=== PATIENT | male | born 1940 | race African-American/Black ===

== ENCOUNTER 2017-03-04 09:44 | Emergency (ER) | payer OTHER, MEDICAID ==
[~2017-03-04] VITALS: Ht 175.3 cm; Wt 80.0 kg
[~2017-03-04 09:44] MED LIST: ATEN1TAB42 PO; GLIP10TA10 PO; INSU100C3 SQ; INSU3INS6 SUBCUT; LOV80 SUBCUT; WARF5TAB76 PO
[2017-03-04 10:17] LABS: HEMATOCRIT. 32.2 % (42.0-52.0); HEMOGLOBIN. 10.4 g/dL (14.0-18.0); MEAN CORPUSCULAR HEMOGLOBIN 26.5 pg (28.0-32.0); MEAN CORPUSCULAR HGB CONC 32.3 g/dL (31.0-37.0); MEAN CORPUSCULAR VOLUME 81.9 fL (80.0-94.0); MEAN PLATELET VOLUME 9.1 fl (7.4-10.4); PLATELET 186 x1000/uL (130-400); RED BLOOD CELL COUNT 3.93 mill/uL (4.7-6.1); RED CELL DISTRIBUTION WIDTH 14.8 % (11.6-14.6); WHITE BLOOD COUNT 6.7 x1000/uL (4.5-11.0)
[2017-03-04 10:18] LABS: DIFFERENTIAL COMMENT 1
[2017-03-04 10:22] LABS: CHLORIDE 113 mEq/L (98-107)
[2017-03-04 10:25] LABS: ANION GAP 11; CARBON DIOXIDE 28 mEq/L (21-32); INDEX HEMOLYSI 1 (1-3); INDEX ICTERIC 1 (1-4); INDEX LIPEMIC 1 (1-3); UREA NITROGEN BLOOD 39 mg/dL (7-21)
[2017-03-04 10:30] LABS: ALANINE AMINOTRANSFERASE 17 IU/L (13-61); INR 2.9; PROTHROMBIN TIME 30.4 sec; eGFR 19 mL/min (>60)
[2017-03-04 10:49] LABS: PLATELET ESTIMATE NORMAL
[2017-03-04] MEDS ORDERED: ACETAMINOPHEN 325MG TABLET PO ONE (11:15)
[2017-03-04 12:00] VITALS: BP 142/80
== END 2017-03-04 12:00 | disposition home or self-care (01) ==
LOC: ER 10:01
DX: S16.1XXA Strain of muscle, fascia and tendon at neck level, initial encounter (principal); S20.219A Contusion of unspecified front wall of thorax, initial encounter; S09.8XXA Other specified injuries of head, initial encounter; E11.9 Type 2 diabetes mellitus without complications; E78.00 Pure hypercholesterolemia, unspecified; I51.9 Heart disease, unspecified; I25.10 Atherosclerotic heart disease of native coronary artery without angina pectoris; Z79.4 Long term (current) use of insulin; Z79.01 Long term (current) use of anticoagulants; Z88.5 Allergy status to narcotic agent; Z96.659 Presence of unspecified artificial knee joint; V43.92XA Unspecified car occupant injured in collision with other type car in traffic accident, initial encounter; Y93.89 Activity, other specified; Y99.8 Other external cause status; Y92.89 Other specified places as the place of occurrence of the external cause
CPT/HCPCS: 36415; 70450; 71010; 72125; 80053; 85025; 85610; 93005; 99285

== ENCOUNTER 2017-04-02 18:38 | Inpatient (IN) | payer OTHER, MEDICAID ==
[~2017-04-02] VITALS: Ht 175.3 cm; Wt 79.4 kg
[2017-04-02] MEDS ORDERED: IPRATROPIUM BROMIDE (0.02%) 0.5MG/2.5ML NEB HHN STA (19:05)
[2017-04-02] MEDS ORDERED: METHYLPREDNISOLONE SOD SUCC 125 MG/2 ML VIAL IV STA (19:05)
[2017-04-02] MEDS ORDERED: ALBUTEROL (0.083%) 2.5MG/3ML NEB HHN STA (19:05)
[2017-04-02] MEDS ORDERED: NITROGLYCERIN OINT 1GM/INCH UDPKT TD STA (19:05)
[2017-04-02 19:29] LABS: BASOPHILS % 1.2 % (0.0-2.0); EOSINOPHILS % 14.2 % (0.0-5.0); HEMATOCRIT. 33.9 % (42.0-52.0); HEMOGLOBIN. 10.9 g/dL (14.0-18.0); LYMPHOCYTES % 29.1 % (20.0-50.0); MEAN CORPUSCULAR HEMOGLOBIN 26.5 pg (28.0-32.0); MEAN CORPUSCULAR VOLUME 82.5 fL (80.0-94.0); MEAN PLATELET VOLUME 9.2 fl (7.4-10.4); MONOCYTES % 7.3 % (2.0-8.0); NEUTROPHILS % 48.2 % (40.0-76.0); PLATELET 185 x1000/uL (130-400); RED BLOOD CELL COUNT 4.11 mill/uL (4.7-6.1); RED CELL DISTRIBUTION WIDTH 14.3 % (11.6-14.6)
[2017-04-02 19:34] LABS: INR 1.7; PROTHROMBIN TIME 17.4 sec
[2017-04-02 19:39] LABS: CARBON DIOXIDE 27 mEq/L (21-32); CHLORIDE 108 mEq/L (98-107)
[2017-04-02 19:43] LABS: TROPONIN I < 0.02 ng/mL (0.00-0.04)
[2017-04-02] MEDS ORDERED: SODIUM POLYSTYRENE SULFONATE 15 G/60 ML BOT PO ONE (20:00)
[2017-04-02] MEDS ORDERED: INSULIN REGULAR (HUMULIN R) UD 100 UNITS/ML SYR IV ONE (20:00)
[2017-04-02] MEDS ORDERED: DEXTROSE 50% WATER 50ML SYRINGE IV ONE (20:00)
[2017-04-02] MEDS ORDERED: INSULIN REGULAR (HUMULIN R) 300UNITS/3ML IV ONE (20:00)
[2017-04-02] MEDS ORDERED: SODIUM BICARBONATE 8.4% 1 MEQ/ML 50ML SYR IV ONE (20:00)
[2017-04-02] MEDS ORDERED: INSULIN REGULAR (HUMULIN R) 300UNITS/3ML IV NR (20:15)
[2017-04-02 23:20] VITALS: BP 146/82
[2017-04-03] MEDS ORDERED: HYDROCODONE/ACETAMINOPHEN 5/325MG TABLET PO PRN (00:45)
[2017-04-03] MEDS ORDERED: TEMAZEPAM 15MG CAPSULE PO PRN (00:45)
[2017-04-03] MEDS ORDERED: DEXTROSE 50% WATER 50ML SYRINGE IV PRN (00:45)
[2017-04-03] MEDS: SODIUM CHLORIDE 0.45% 1,000 ML IV SCH ×2 (02:39→17:13)
[2017-04-03 04:00] VITALS: BP 134/82
[2017-04-03] MEDS: CEFTRIAXONE 1 G PREMIX 50 ML IV SCH (04:50)
[2017-04-03] MEDS: IPRATROPIUM/ALBUTEROL 0.5-3(2.5)MG/3ML NEB HHN SCH ×5 (05:04→20:41)
[2017-04-03 06:26] LABS: BASOPHILS % 0.3 % (0.0-2.0); EOSINOPHILS % 0.1 % (0.0-5.0); HEMATOCRIT. 32.7 % (42.0-52.0); HEMOGLOBIN. 10.4 g/dL (14.0-18.0); INR 1.9; LYMPHOCYTES % 11.3 % (20.0-50.0); MEAN CORPUSCULAR HEMOGLOBIN 26.7 pg (28.0-32.0); MEAN PLATELET VOLUME 9.7 fl (7.4-10.4); MONOCYTES % 0.4 % (2.0-8.0); NEUTROPHILS % 87.9 % (40.0-76.0); PLATELET 139 x1000/uL (130-400); PROTHROMBIN TIME 20.3 sec; RED BLOOD CELL COUNT 3.89 mill/uL (4.7-6.1); RED CELL DISTRIBUTION WIDTH 14.2 % (11.6-14.6)
[2017-04-03] MEDS: BLOOD SUGAR DIAGNOSTIC STRIP TEST SCH ×4 (07:03→22:26)
[2017-04-03] MEDS ORDERED: GLIPIZIDE 10MG TABLET PO SCH ×2 (07:30→09:00)
[2017-04-03 08:00] VITALS: BP 129/61
[2017-04-03] MEDS: GLIPIZIDE 10MG TABLET PO SCH ×2 (08:39→18:08)
[2017-04-03] MEDS: INSULIN LISPRO 100 UNITS/ML SUBCUT SCH ×5 (08:47→22:34)
[2017-04-03] MEDS ORDERED: [UNRECOGNIZED DRUG - OTHER] SUBCUT SCH (09:00)
[2017-04-03] MEDS ORDERED: INSULIN GLARGINE HUM REC ANLOG 26 UNIT SUBCUT SCH (09:00)
[2017-04-03] MEDS: METHYLPREDNISOLONE SOD SUCC 40 MG/ML VIAL IV SCH ×2 (09:13→21:26)
[2017-04-03] MEDS ORDERED: SODIUM POLYSTYRENE SULFONATE 15 G/60 ML BOT PO SCH (09:30)
[2017-04-03] MEDS: INSULIN DETEMIR UD 100 UNITS/ML SYR SUBCUT SCH ×2 (10:12→22:30)
[2017-04-03 12:00] VITALS: BP 143/83
[2017-04-03] MEDS ORDERED: FUROSEMIDE 20MG/2ML VIAL IVP NR (16:45)
[2017-04-03] MEDS ORDERED: WARFARIN SODIUM 5MG TABLET PO NR (18:00)
[2017-04-03 20:00] VITALS: BP 138/71
[2017-04-04] VITALS: BP 118/60
[2017-04-04] MEDS: CEFTRIAXONE 1 G PREMIX 50 ML IV SCH (03:55)
[2017-04-04 04:00] VITALS: BP 142/73
[2017-04-04] MEDS: IPRATROPIUM/ALBUTEROL 0.5-3(2.5)MG/3ML NEB HHN SCH ×6 (04:00→20:15)
[2017-04-04 06:37] LABS: INR 2.1
[2017-04-04] MEDS: SODIUM CHLORIDE 0.45% 1,000 ML IV SCH ×2 (06:46→16:12)
[2017-04-04] MEDS: BLOOD SUGAR DIAGNOSTIC STRIP TEST SCH ×4 (06:47→21:19)
[2017-04-04 06:59] LABS: PHOSPHORUS 3.9 mg/dL (2.5-4.9)
[2017-04-04 07:40] LABS: BASOPHILS % 0.1 % (0.0-2.0); HEMATOCRIT. 26.9 % (42.0-52.0); HEMOGLOBIN. 8.7 g/dL (14.0-18.0); LYMPHOCYTES % 8.6 % (20.0-50.0); MEAN CORPUSCULAR HEMOGLOBIN 26.3 pg (28.0-32.0); MEAN CORPUSCULAR VOLUME 81.6 fL (80.0-94.0); MEAN PLATELET VOLUME 9.6 fl (7.4-10.4); MONOCYTES % 1.4 % (2.0-8.0); NEUTROPHILS % 89.9 % (40.0-76.0); PLATELET 161 x1000/uL (130-400); RED CELL DISTRIBUTION WIDTH 14.1 % (11.6-14.6)
[2017-04-04 08:00] VITALS: BP 121/62
[2017-04-04] MEDS: METHYLPREDNISOLONE SOD SUCC 40 MG/ML VIAL IV SCH ×2 (08:33→21:19)
[2017-04-04] MEDS: GLIPIZIDE 10MG TABLET PO SCH ×2 (08:34→17:45)
[2017-04-04] MEDS: INSULIN LISPRO 100 UNITS/ML SUBCUT SCH ×4 (08:37→21:23)
[2017-04-04 12:00] VITALS: BP 137/58
[2017-04-04] MEDS: INSULIN DETEMIR UD 100 UNITS/ML SYR SUBCUT SCH ×2 (12:35→21:24)
[2017-04-04 16:00] VITALS: BP 165/92
[2017-04-04] MEDS: LOSARTAN POTASSIUM 50 MG TABLET PO SCH ×3 (16:10→16:14)
[2017-04-04] MEDS ORDERED: WARFARIN SODIUM 5MG TABLET PO SCH (18:00)
[2017-04-04 20:00] VITALS: BP 138/108
[2017-04-04] MEDS: ATENOLOL 50 MG TABLET PO SCH (20:11)
[2017-04-05] VITALS: BP 124/84
[2017-04-05] MEDS ORDERED: FUROSEMIDE 40MG/4ML VIAL IVP NR (01:45)
[2017-04-05] MEDS: SODIUM CHLORIDE 0.45% 1,000 ML IV SCH ×2 (03:54→16:45)
[2017-04-05] MEDS: CEFTRIAXONE 1 G PREMIX 50 ML IV SCH (03:54)
[2017-04-05 04:00] VITALS: BP 159/80
[2017-04-05] MEDS: IPRATROPIUM/ALBUTEROL 0.5-3(2.5)MG/3ML NEB HHN SCH ×6 (04:00→21:07)
[2017-04-05] MEDS: HYDRALAZINE HCL 50MG TABLET PO SCH ×3 (06:15→21:59)
[2017-04-05 06:36] LABS: BASOPHILS % 0.1 % (0.0-2.0); HEMATOCRIT. 28.3 % (42.0-52.0); HEMOGLOBIN. 9.1 g/dL (14.0-18.0); MEAN CORPUSCULAR HEMOGLOBIN 26.1 pg (28.0-32.0); MEAN CORPUSCULAR VOLUME 81.1 fL (80.0-94.0); MEAN PLATELET VOLUME 9.4 fl (7.4-10.4); MONOCYTES % 2.2 % (2.0-8.0); NEUTROPHILS % 89.7 % (40.0-76.0); PLATELET 169 x1000/uL (130-400); RED BLOOD CELL COUNT 3.49 mill/uL (4.7-6.1); RED CELL DISTRIBUTION WIDTH 13.9 % (11.6-14.6)
[2017-04-05 06:45] LABS: INR 2.1; PROTHROMBIN TIME 22.2 sec
[2017-04-05 07:24] LABS: CARBON DIOXIDE 25 mEq/L (21-32); CHLORIDE 110 mEq/L (98-107)
[2017-04-05] MEDS: BLOOD SUGAR DIAGNOSTIC STRIP TEST SCH ×4 (07:40→21:57)
[2017-04-05 08:00] VITALS: BP 161/95
[2017-04-05] MEDS: INSULIN LISPRO 100 UNITS/ML SUBCUT SCH ×4 (08:10→22:01)
[2017-04-05] MEDS: METHYLPREDNISOLONE SOD SUCC 40 MG/ML VIAL IV SCH ×2 (09:00→21:00)
[2017-04-05] MEDS: INSULIN DETEMIR UD 100 UNITS/ML SYR SUBCUT SCH ×2 (11:40→22:01)
[2017-04-05] MEDS: GLIPIZIDE 10MG TABLET PO SCH ×2 (11:42→18:17)
[2017-04-05] MEDS: TAMSULOSIN HCL 0.4MG SR CAPSULE PO SCH (11:42)
[2017-04-05] MEDS: ATENOLOL 50 MG TABLET PO SCH (11:43)
[2017-04-05 12:00] VITALS: BP 184/92
[2017-04-05 16:00] VITALS: BP 167/92
[2017-04-05] MEDS ORDERED: WARFARIN SODIUM 5MG TABLET PO SCH (18:00)
[2017-04-05 20:00] VITALS: BP 147/76
[2017-04-06] VITALS: BP 125/64
[2017-04-06] MEDS: IPRATROPIUM/ALBUTEROL 0.5-3(2.5)MG/3ML NEB HHN SCH ×5 (01:15→21:13)
[2017-04-06 04:00] VITALS: BP 128/59
[2017-04-06] MEDS: CEFTRIAXONE 1 G PREMIX 50 ML IV SCH ×2 (04:00→21:53)
[2017-04-06] MEDS: SODIUM CHLORIDE 0.45% 1,000 ML IV SCH ×2 (05:15→17:45)
[2017-04-06 05:34] LABS: INR 2.1; PROTHROMBIN TIME 21.4 sec
[2017-04-06 05:57] LABS: BASOPHILS % 0.2 % (0.0-2.0); EOSINOPHILS % 1.3 % (0.0-5.0); HEMATOCRIT. 28.7 % (42.0-52.0); HEMOGLOBIN. 9.3 g/dL (14.0-18.0); LYMPHOCYTES % 18.6 % (20.0-50.0); MEAN CORPUSCULAR HEMOGLOBIN 26.4 pg (28.0-32.0); MEAN CORPUSCULAR VOLUME 81.4 fL (80.0-94.0); MEAN PLATELET VOLUME 9.4 fl (7.4-10.4); MONOCYTES % 9.2 % (2.0-8.0); NEUTROPHILS % 70.7 % (40.0-76.0); PLATELET 164 x1000/uL (130-400); RED BLOOD CELL COUNT 3.53 mill/uL (4.7-6.1); RED CELL DISTRIBUTION WIDTH 13.9 % (11.6-14.6)
[2017-04-06] MEDS: HYDRALAZINE HCL 50MG TABLET PO SCH ×3 (06:03→21:46)
[2017-04-06] MEDS: BLOOD SUGAR DIAGNOSTIC STRIP TEST SCH ×4 (06:52→21:23)
[2017-04-06] MEDS: INSULIN LISPRO 100 UNITS/ML SUBCUT SCH ×4 (07:24→21:00)
[2017-04-06 08:00] VITALS: BP 141/69
[2017-04-06] MEDS: METHYLPREDNISOLONE SOD SUCC 40 MG/ML VIAL IV SCH ×2 (09:00→21:00)
[2017-04-06] MEDS: TAMSULOSIN HCL 0.4MG SR CAPSULE PO SCH (09:51)
[2017-04-06] MEDS: GLIPIZIDE 10MG TABLET PO SCH ×2 (09:52→17:14)
[2017-04-06] MEDS: ATENOLOL 50 MG TABLET PO SCH (09:52)
[2017-04-06] MEDS: INSULIN DETEMIR UD 100 UNITS/ML SYR SUBCUT SCH ×2 (09:54→21:24)
[2017-04-06 12:00] VITALS: BP 138/83
[2017-04-06 13:07] LABS: *CREATININE RANDOM URINE 104.1 mg/dL (Not Estab.)
[2017-04-06 16:00] VITALS: BP 131/71
[2017-04-06] MEDS ORDERED: ACETAMINOPHEN 650MG/20.3ML UDC PO PRN (17:45)
[2017-04-06] MEDS ORDERED: WARFARIN SODIUM 5MG TABLET PO SCH (18:00)
[2017-04-06 20:00] VITALS: BP 118/83
[2017-04-07] VITALS: BP 121/66
[2017-04-07] MEDS: SODIUM CHLORIDE 0.45% 1,000 ML IV SCH (00:30)
[2017-04-07 04:00] VITALS: BP 132/61
[2017-04-07] MEDS: IPRATROPIUM/ALBUTEROL 0.5-3(2.5)MG/3ML NEB HHN SCH ×3 (04:30→12:33)
[2017-04-07] MEDS: HYDRALAZINE HCL 50MG TABLET PO SCH (05:20)
[2017-04-07] MEDS: BLOOD SUGAR DIAGNOSTIC STRIP TEST SCH ×2 (05:20→12:09)
[2017-04-07 08:00] VITALS: BP 136/79
[2017-04-07] MEDS: INSULIN LISPRO 100 UNITS/ML SUBCUT SCH ×2 (08:10→12:09)
[2017-04-07] MEDS: GLIPIZIDE 10MG TABLET PO SCH (08:41)
[2017-04-07] MEDS: METHYLPREDNISOLONE SOD SUCC 40 MG/ML VIAL IV SCH (09:00)
[2017-04-07] MEDS: ATENOLOL 50 MG TABLET PO SCH (09:39)
[2017-04-07] MEDS: TAMSULOSIN HCL 0.4MG SR CAPSULE PO SCH (09:39)
[2017-04-07] MEDS: INSULIN DETEMIR UD 100 UNITS/ML SYR SUBCUT SCH (09:41)
[2017-04-07 12:00] VITALS: BP 138/86
[2017-04-07 13:28] VITALS: BP 138/86
[2017-04-07] MEDS ORDERED: WARFARIN SODIUM 3MG TABLET PO SCH (18:00)
[2017-04-07] MEDS ORDERED: ATORVASTATIN CALCIUM 20MG TABLET PO SCH (21:00)
[2017-04-08 13:10] LABS: MICROALBUMIN RANDOM URINE 738.2 ug/mL (Not Estab.); MICROALBUMIN/CREATININE RATIO 709.1 mg/g creat (0.0-30.0)
== END 2017-04-07 14:30 | disposition home or self-care (01) | DRG 682 ==
LOC: ER 20:40 → 7WST 20:42 → EDBEDREQ 20:44 → EDBEDREQTM 20:44 → ENRESERV 21:46
PROVIDERS: ADMIT Internal Medicine; ATTEND Internal Medicine
DX: N17.9 Acute kidney failure, unspecified (principal); E43 Unspecified severe protein-calorie malnutrition; I13.0 Hypertensive heart and chronic kidney disease with heart failure and stage 1 through stage 4 chronic kidney disease, or unspecified chronic kidney disease; J44.1 Chronic obstructive pulmonary disease with (acute) exacerbation; I43 Cardiomyopathy in diseases classified elsewhere; N18.4 Chronic kidney disease, stage 4 (severe); I50.9 Heart failure, unspecified; E11.65 Type 2 diabetes mellitus with hyperglycemia; E11.22 Type 2 diabetes mellitus with diabetic chronic kidney disease; D63.1 Anemia in chronic kidney disease; E87.5 Hyperkalemia; E11.649 Type 2 diabetes mellitus with hypoglycemia without coma; J06.9 Acute upper respiratory infection, unspecified; J01.90 Acute sinusitis, unspecified; I87.8 Other specified disorders of veins; E66.9 Obesity, unspecified; E78.5 Hyperlipidemia, unspecified; M19.90 Unspecified osteoarthritis, unspecified site; Z98.41 Cataract extraction status, right eye; Z98.42 Cataract extraction status, left eye; Z68.25 Body mass index [BMI] 25.0-25.9, adult; Z79.01 Long term (current) use of anticoagulants; Z79.4 Long term (current) use of insulin; Z79.899 Other long term (current) drug therapy; Z86.718 Personal history of other venous thrombosis and embolism; Z87.891 Personal history of nicotine dependence; Z83.3 Family history of diabetes mellitus
CPT/HCPCS: 36415; 71010; 76700; 80048; 80053; 82043; 82570; 82962; 83036; 83605; 83690; 83880; 83970; 84100; 84132; 84300; 84439; 84443; 84484; 85025; 85610; 87040; 93005; 94640; 94644; 94664; 96374; 96375; 99285; A6261; J0696; J1815; J1940; J2920; J2930; J3490; J7611; J7620

== ENCOUNTER 2017-07-28 11:45 | Inpatient (IN) | payer OTHER, MEDICAID ==
[~2017-07-28] VITALS: Ht 172.7 cm; Wt 90.7 kg
[2017-07-28 12:45] LABS: EOSINOPHILS % 2.2 % (0.0-5.0); HEMATOCRIT. 34.5 % (42.0-52.0); HEMOGLOBIN. 11.1 g/dL (14.0-18.0); LYMPHOCYTES % 15.8 % (20.0-50.0); MEAN CORPUSCULAR HEMOGLOBIN 26.1 pg (28.0-32.0); MEAN CORPUSCULAR VOLUME 81.5 fL (80.0-94.0); MEAN PLATELET VOLUME 9.6 fl (7.4-10.4); MONOCYTES % 4.6 % (2.0-8.0); NEUTROPHILS % 76.4 % (40.0-76.0); PLATELET 149 x1000/uL (130-400); RED BLOOD CELL COUNT 4.23 mill/uL (4.7-6.1); RED CELL DISTRIBUTION WIDTH 13.8 % (11.6-14.6)
[2017-07-28 12:53] LABS: CHLORIDE 114 mEq/L (98-107); INR 1.5; PARTIAL THROMBOPLASTIN TIME 31.7 sec (23.4-31.0); PROTHROMBIN TIME 15.4 sec (9.4-11.6)
[2017-07-28 13:02] LABS: CARBON DIOXIDE 24 mEq/L (21-32); TROPONIN I 0.02 ng/mL (0.00-0.04)
[2017-07-28 20:00] VITALS: BP 129/82
[2017-07-28 21:58] VITALS: BP 122/66
[2017-07-28] MEDS ORDERED: GUAIFENESIN 200MG/10ML SUGAR FREE UDC PO PRN (22:00)
[2017-07-28] MEDS ORDERED: ONDANSETRON HCL 4MG/2ML VIAL IV PRN (22:00)
[2017-07-28] MEDS ORDERED: ACETAMINOPHEN 325MG TABLET PO PRN (22:00)
[2017-07-28] MEDS ORDERED: MAGNESIUM/ALUMINUM HYDROXIDE/SIMETHICONE 30ML UDC PO PRN (22:00)
[2017-07-28] MEDS ORDERED: DEXTROSE 50% WATER 50ML SYRINGE IV PRN ×2 (22:15→22:45)
[2017-07-28] MEDS ORDERED: MAGNESIUM HYDROXIDE 400MG/5ML 30ML UDC PO PRN (22:15)
[2017-07-28] MEDS ORDERED: ZOLPIDEM TARTRATE 5MG TABLET PO PRN (22:15)
[2017-07-28] MEDS ORDERED: WARFARIN SODIUM 5MG TABLET PO NR (22:30)
[2017-07-28] MEDS ORDERED: HYDROCODONE/APAP 7.5/325MG 1 TAB TABLET PO PRN (22:45)
[2017-07-28] MEDS: SODIUM CHLORIDE 0.9% INJ 3ML FLUSH IVF SCH (22:46)
[2017-07-29] VITALS (7 sets, daily range): BP systolic 101–159; BP diastolic 56–86
[2017-07-29] MEDS ORDERED: DEXT 5%/0.45% NACL 500ML 500 ML IV ONE (00:15)
[2017-07-29] MEDS: INSULIN DETEMIR UD 100 UNITS/ML SYR SUBCUT SCH ×2 (00:33→21:41)
[2017-07-29] MEDS: SODIUM CHLORIDE 0.9% INJ 3ML FLUSH IVF SCH ×3 (05:17→21:39)
[2017-07-29 05:46] LABS: INR 1.6; PROTHROMBIN TIME 16.5 sec (9.4-11.6)
[2017-07-29] MEDS: BLOOD SUGAR DIAGNOSTIC STRIP TEST SCH ×4 (06:19→20:54)
[2017-07-29] MEDS: INSULIN LISPRO 100 UNITS/ML SUBCUT SCH ×4 (06:41→20:54)
[2017-07-29] MEDS ORDERED: BLOOD SUGAR DIAGNOSTIC STRIP TEST SCH (07:10)
[2017-07-29] MEDS ORDERED: INSULIN LISPRO 100 UNITS/ML SUBCUT SCH (07:40)
[2017-07-29 09:20] LABS: BASOPHILS % 1.3 % (0.0-2.0); EOSINOPHILS % 7.3 % (0.0-5.0); HEMATOCRIT. 30.6 % (42.0-52.0); HEMOGLOBIN. 9.9 g/dL (14.0-18.0); LYMPHOCYTES % 33.2 % (20.0-50.0); MEAN CORPUSCULAR HEMOGLOBIN 26.5 pg (28.0-32.0); MEAN CORPUSCULAR VOLUME 81.8 fL (80.0-94.0); MEAN PLATELET VOLUME 10.4 fl (7.4-10.4); MONOCYTES % 9.9 % (2.0-8.0); NEUTROPHILS % 48.3 % (40.0-76.0); PLATELET 130 x1000/uL (130-400); RED BLOOD CELL COUNT 3.75 mill/uL (4.7-6.1); RED CELL DISTRIBUTION WIDTH 13.9 % (11.6-14.6)
[2017-07-29] MEDS: ATENOLOL 50 MG TABLET PO SCH (09:39)
[2017-07-29] MEDS ORDERED: WARFARIN SODIUM 5MG TABLET PO NR (18:00)
[2017-07-30] VITALS: BP 128/53
[2017-07-30 04:00] VITALS: BP 160/68
[2017-07-30] MEDS: SODIUM CHLORIDE 0.9% INJ 3ML FLUSH IVF SCH (06:25)
[2017-07-30] MEDS: BLOOD SUGAR DIAGNOSTIC STRIP TEST SCH ×2 (06:25→11:25)
[2017-07-30] MEDS: INSULIN LISPRO 100 UNITS/ML SUBCUT SCH ×2 (06:25→11:46)
[2017-07-30] MEDS: IPRATROPIUM/ALBUTEROL 0.5-3(2.5)MG/3ML NEB HHN PRN ×3 (06:46→12:51)
[2017-07-30 07:19] LABS: BASOPHILS % 1.1 % (0.0-2.0); EOSINOPHILS % 11.2 % (0.0-5.0); HEMATOCRIT. 32.3 % (42.0-52.0); HEMOGLOBIN. 10.4 g/dL (14.0-18.0); LYMPHOCYTES % 37.5 % (20.0-50.0); MEAN CORPUSCULAR HEMOGLOBIN 26.2 pg (28.0-32.0); MEAN CORPUSCULAR VOLUME 81.6 fL (80.0-94.0); MEAN PLATELET VOLUME 9.9 fl (7.4-10.4); MONOCYTES % 9.6 % (2.0-8.0); NEUTROPHILS % 40.6 % (40.0-76.0); PLATELET 148 x1000/uL (130-400); RED BLOOD CELL COUNT 3.96 mill/uL (4.7-6.1); RED CELL DISTRIBUTION WIDTH 13.8 % (11.6-14.6)
[2017-07-30 07:35] LABS: INR 1.8; PROTHROMBIN TIME 18.7 sec (9.4-11.6)
[2017-07-30 07:44] LABS: PHOSPHORUS 3.8 mg/dL (2.5-4.9)
[2017-07-30 08:00] VITALS: BP 151/73
[2017-07-30] MEDS: ATENOLOL 50 MG TABLET PO SCH (08:19)
[2017-07-30 12:00] VITALS: BP 155/67
[2017-07-30 12:02] VITALS: BP 151/73
[2017-07-30] MEDS ORDERED: WARFARIN SODIUM 5MG TABLET PO SCH (18:00)
[2017-07-31 13:12] LABS: *CREATININE RANDOM URINE 80.8 mg/dL (Not Estab.); MICROALBUMIN RANDOM URINE 467.9 ug/mL (Not Estab.)
== END 2017-07-30 14:35 | disposition home health service (06) | DRG 74 ==
LOC: ER 11:45 → 8WST 15:40 → ENRESERV 16:12
PROVIDERS: ADMIT Internal Medicine; ATTEND Internal Medicine
DX: G90.8 Other disorders of autonomic nervous system (principal); N18.4 Chronic kidney disease, stage 4 (severe); I43 Cardiomyopathy in diseases classified elsewhere; E11.22 Type 2 diabetes mellitus with diabetic chronic kidney disease; E11.649 Type 2 diabetes mellitus with hypoglycemia without coma; E44.1 Mild protein-calorie malnutrition; R55 Syncope and collapse; Z68.30 Body mass index [BMI] 30.0-30.9, adult; J44.9 Chronic obstructive pulmonary disease, unspecified; R00.1 Bradycardia, unspecified; D64.9 Anemia, unspecified; I12.9 Hypertensive chronic kidney disease with stage 1 through stage 4 chronic kidney disease, or unspecified chronic kidney disease; E78.5 Hyperlipidemia, unspecified; M19.90 Unspecified osteoarthritis, unspecified site; Z83.3 Family history of diabetes mellitus; Z86.718 Personal history of other venous thrombosis and embolism; Z87.891 Personal history of nicotine dependence; Z98.41 Cataract extraction status, right eye; Z98.42 Cataract extraction status, left eye; Z88.5 Allergy status to narcotic agent; Z79.01 Long term (current) use of anticoagulants; Z79.4 Long term (current) use of insulin; Z79.899 Other long term (current) drug therapy
CPT/HCPCS: 36415; 70450; 71010; 80048; 80053; 82043; 82570; 82962; 83036; 83690; 83735; 83970; 84100; 84484; 85025; 85610; 85730; 93005; 94640; 94664; 97162; 97535; 99285; J1815; J7620

== ENCOUNTER 2017-12-09 11:42 | Emergency (ER) | payer OTHER, MEDICAID ==
[~2017-12-09] VITALS: Ht 170.2 cm; Wt 75.0 kg
[2017-12-09] MEDS ORDERED: ONDANSETRON HCL 4MG/2ML VIAL IV STA (12:17)
[2017-12-09] MEDS ORDERED: MORPHINE SULFATE 4 MG/ML CPJ (NOT FOR IM USE) IV STA (12:17)
[2017-12-09] MEDS ORDERED: SODIUM CHLORIDE 0.9% 1,000 ML IV ONE (12:17)
[2017-12-09 13:09] LABS: BASOPHILS % 0.8 % (0.0-2.0); EOSINOPHILS % 1.8 % (0.0-5.0); HEMATOCRIT. 34.9 % (42.0-52.0); LYMPHOCYTES % 16.5 % (20.0-50.0); MEAN CORPUSCULAR HEMOGLOBIN 26.2 pg (28.0-32.0); MEAN CORPUSCULAR VOLUME 82.6 fL (80.0-94.0); MEAN PLATELET VOLUME 9.3 fl (7.4-10.4); MONOCYTES % 7.9 % (2.0-8.0); PLATELET 185 x1000/uL (130-400); RED BLOOD CELL COUNT 4.22 mill/uL (4.7-6.1); RED CELL DISTRIBUTION WIDTH 14.3 % (11.6-14.6)
[2017-12-09 13:19] LABS: INR 1.6; PARTIAL THROMBOPLASTIN TIME 46.6 sec (23.4-31.0); PROTHROMBIN TIME 16.7 sec (9.4-11.6)
[2017-12-09 13:25] LABS: CHLORIDE 117 mEq/L (98-107)
[2017-12-09 17:11] VITALS: BP 138/76
== END 2017-12-09 18:00 | disposition home or self-care (01) ==
LOC: ER 11:48
DX: K60.0 Acute anal fissure (principal); K62.5 Hemorrhage of anus and rectum; E11.9 Type 2 diabetes mellitus without complications; I10 Essential (primary) hypertension; Z88.5 Allergy status to narcotic agent; Z79.4 Long term (current) use of insulin; Z79.01 Long term (current) use of anticoagulants
CPT/HCPCS: 36415; 71045; 80053; 85025; 85610; 85730; 86850; 86900; 86901; 93005; 96361; 96374; 99285; J2405; J7030; J2270